=== PATIENT | female | born 2000 | race Caucasian/White ===

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

== ENCOUNTER 2020-06-21 02:17 | Emergency (ER) | payer BC ==
[~2020-06-21] VITALS: Ht 180.3 cm; Wt 140.0 kg
[~2020-06-21 02:17] MED LIST: NAPROSYN500 MG PO
[2020-06-21 02:20] VITALS: TEMP 98.4
[2020-06-21 02:41] LABS: BASO # 0.1 (0.0-0.2); BASO % 0.5 % (0.0-2.0); EOS # 0.1 (0.0-0.7); EOS % 0.5 % (0-4.0); GRAN # 6.8 (1.4-6.5); GRAN % 69.5 % (42.2-75.2); HEMATOCRIT 45.2 % (35.0-45.0); HEMOGLOBIN 14.6 g/dl (12.0-15.0); LYMPH # 2.2 (1.2-3.4); LYMPH % 22.7 % (20.0-51.0); MEAN CELL VOLUME 87 fl (80.0-95.0); MEAN CORPUSCULAR HEMOGLOBIN 28 pg (26.0-32.0); MEAN CORPUSCULAR HGB CONC 32 g/dl (33.0-37.0); MEAN PLATELET VOLUME 9.9 fl (7.4-10.4); MONO # 0.6 (0.1-0.6); MONO % 6.6 % (1.7-9.3); PLATELET COUNT 298 K/mm3 (130-400); RED BLOOD COUNT 5.19 M/mm3 (4.10-5.30); REDCELL DISTRIBUTION WIDTH-CV 12.5 % (11.5-14.5)
[2020-06-21 02:55] LABS: ALBUMIN 4.8 gm/dL (3.5-5.0); BILIRUBIN,TOTAL 0.6 mg/dL (0.0-1.0); CALCIUM 9.9 mg/dL (8.4-10.2); CREATININE, serum 1.05 (0.52-1.25); TOTAL PROTEIN 8.1 gm/dL (6.4-8.2)
[2020-06-21 04:19] LABS: COLLECTION METHOD CLEAN CATCH
[2020-06-21 04:37] VITALS: BP 128/71; PULSE 71
[2020-06-21 04:37] LABS: PH 6 (5-8); URINE APPEARANCE Clear; URINE COLOR Straw; URINE GLUCOSE Negative (NEGATIVE); URINE KETONE Negative (NEGATIVE); URINE PROTEIN(semi-quant) Negative (NEGATIVE)
[2020-06-21 04:38] LABS: URINE BILIRUBIN Negative (NEGATIVE); URINE NITRATE Negative (NEGATIVE); URINE UROBILINOGEN Negative (NEGATIVE)
[2020-06-21 04:39] LABS: URINE BLOOD Negative (NEGATIVE); URINE LEUKOCYTE ESTERASE Trace (NEGATIVE); URINE RBC 0-2 /hpf; URINE WBC 0-2 /hpf
[2020-06-21 04:40] LABS: SQUAMOUS EPITHELIAL 0-2 /hpf
== END 2020-06-21 04:37 | disposition home or self-care (01) ==
LOC: COL.ER 02:17
PROVIDERS: Emergency Medicine
DX: R10.10 Upper abdominal pain, unspecified (principal); R10.13 Epigastric pain
CPT/HCPCS: J2270; J2405; J7120

== ENCOUNTER → 2020-07-09 | Outpatient (CLI) | payer BC ==
[~2020-07-09] MED LIST changes: +LEVAQUIN 750MG750 M1 PO; +NORCO 325 MG-51 TAB PO; +ZOFRAN ODT4 MG PO
== END ==
LOC: COL.RAD
DX: K80.20 Calculus of gallbladder without cholecystitis without obstruction (principal)

== ENCOUNTER 2020-07-12 00:33 | Emergency (ER) | payer BC ==
[~2020-07-12] VITALS: Ht 175.3 cm; Wt 136.4 kg
[~2020-07-12 00:33] MED LIST changes: -LEVAQUIN 750MG750 M1 PO; -NORCO 325 MG-51 TAB PO; -ZOFRAN ODT4 MG PO
[2020-07-12 00:37] VITALS: TEMP 97.9
[2020-07-12 01:24] LABS: BASO % 0.3 % (0.0-2.0); EOS # 0.1 (0.0-0.7); EOS % 0.7 % (0-4.0); GRAN # 6.8 (1.4-6.5); GRAN % 59.8 % (42.2-75.2); HEMATOCRIT 42.7 % (35.0-45.0); LYMPH # 3.7 (1.2-3.4); LYMPH % 32.6 % (20.0-51.0); MEAN CELL VOLUME 88 fl (80.0-95.0); MEAN CORPUSCULAR HEMOGLOBIN 29 pg (26.0-32.0); MEAN CORPUSCULAR HGB CONC 33 g/dl (33.0-37.0); MONO # 0.7 (0.1-0.6); MONO % 6.2 % (1.7-9.3); PLATELET COUNT 340 K/mm3 (130-400); RED BLOOD COUNT 4.84 M/mm3 (4.10-5.30); REDCELL DISTRIBUTION WIDTH-CV 12.6 % (11.5-14.5)
[2020-07-12 01:36] LABS: ALANINE AMINOTRANSFERASE 14 U/L (4-34); ALBUMIN 4.4 gm/dL (3.5-5.0); ALKALINE PHOSPHATASE 68 U/L (50-136); ANION GAP 9 mmol/L (7-16); AST,SGOT 20 U/L (15-37); BILIRUBIN,TOTAL 0.2 mg/dL (0.0-1.0); BLOOD UREA NITROGEN 11 mg/dL (7-17); CALCIUM 9.4 mg/dL (8.4-10.2); CARBON DIOXIDE 29 mmol/L (22-30); CHLORIDE 103 mmol/L (98-107); CREATININE, serum 0.98 (0.52-1.25); GLUCOSE 95 mg/dL (74-106); LIPASE 78 U/L (23-300); POTASSIUM 3.6 mmol/L (3.4-5.0); SODIUM 140 mmol/L (137-145); TOTAL PROTEIN 7.3 gm/dL (6.4-8.2)
[2020-07-12 01:38] LABS: C-REACTIVE PROTEIN < 0.5 mg/dL (0.0-0.9)
[2020-07-12] MEDS ORDERED: ZOFRAN ODT4 MG PO (02:00)
[2020-07-12] MEDS ORDERED: NORCO 325 MG-51 TAB PO (02:00)
[2020-07-12 02:14] VITALS: BP 123/74; PULSE 78
== END 2020-07-12 02:14 | disposition home or self-care (01) ==
LOC: COL.ER 00:33
PROVIDERS: Emergency Medicine
DX: K80.50 Calculus of bile duct without cholangitis or cholecystitis without obstruction (principal)
CPT/HCPCS: J2270; J2405; J7030

== ENCOUNTER 2020-07-15 00:13 | Emergency (ER) | payer BC ==
[~2020-07-15] VITALS: Ht 175.3 cm; Wt 136.4 kg
[~2020-07-15 00:13] MED LIST changes: +NORCO 325 MG-51 TAB PO; +ZOFRAN ODT4 MG PO
[2020-07-15 00:31] VITALS: TEMP 98.1
[2020-07-15 00:55] LABS: COLLECTION METHOD CLEAN CATCH
[2020-07-15 00:57] LABS: BASO % 0.4 % (0.0-2.0); EOS # 0.1 (0.0-0.7); EOS % 1.3 % (0-4.0); GRAN # 3.6 (1.4-6.5); HEMATOCRIT 39.8 % (35.0-45.0); HEMOGLOBIN 12.9 g/dl (12.0-15.0); LYMPH # 4.1 (1.2-3.4); LYMPH % 48.7 % (20.0-51.0); MEAN CELL VOLUME 88 fl (80.0-95.0); MEAN CORPUSCULAR HEMOGLOBIN 29 pg (26.0-32.0); MEAN CORPUSCULAR HGB CONC 32 g/dl (33.0-37.0); MEAN PLATELET VOLUME 9.8 fl (7.4-10.4); MONO # 0.5 (0.1-0.6); MONO % 6.4 % (1.7-9.3); PLATELET COUNT 307 K/mm3 (130-400); RED BLOOD COUNT 4.52 M/mm3 (4.10-5.30); REDCELL DISTRIBUTION WIDTH-CV 12.9 % (11.5-14.5)
[2020-07-15 01:07] LABS: MUCOUS Present /lpf; PH 5 (5-8); URINE APPEARANCE Hazy; URINE BACTERIA None Seen /hpf; URINE BILIRUBIN Negative (NEGATIVE); URINE BLOOD Negative (NEGATIVE); URINE COLOR Yellow; URINE GLUCOSE Negative (NEGATIVE); URINE KETONE Negative (NEGATIVE); URINE LEUKOCYTE ESTERASE Trace (NEGATIVE); URINE NITRATE Negative (NEGATIVE); URINE PROTEIN(semi-quant) Negative (NEGATIVE); URINE UROBILINOGEN Negative (NEGATIVE)
[2020-07-15 01:09] LABS: ALANINE AMINOTRANSFERASE 16 U/L (4-34); ALBUMIN 4.1 gm/dL (3.5-5.0); ALKALINE PHOSPHATASE 59 U/L (50-136); ANION GAP 11 mmol/L (7-16); AST,SGOT 26 U/L (15-37); BILIRUBIN,TOTAL < 0.1 mg/dL (0.0-1.0); BLOOD UREA NITROGEN 16 mg/dL (7-17); CALCIUM 9.3 mg/dL (8.4-10.2); CARBON DIOXIDE 26 mmol/L (22-30); CHLORIDE 104 mmol/L (98-107); CREATININE, serum 0.87 (0.52-1.25); GLUCOSE 95 mg/dL (74-106); LIPASE 70 U/L (23-300); POTASSIUM 3.3 mmol/L (3.4-5.0); SODIUM 141 mmol/L (137-145)
[2020-07-15 02:49] VITALS: BP 139/86; PULSE 83
== END 2020-07-15 02:49 | disposition home or self-care (01) ==
LOC: COL.ER 00:13
PROVIDERS: Emergency Medicine
DX: K80.50 Calculus of bile duct without cholangitis or cholecystitis without obstruction (principal); Z32.02 Encounter for pregnancy test, result negative
CPT/HCPCS: J2270

== ENCOUNTER 2020-07-17 05:28 | Day surgery (SDC) | payer BC ==
[~2020-07-17] VITALS: Ht 175.3 cm; Wt 137.6 kg
[2020-07-17] VITALS (7 sets, daily range): BP systolic 118–133; BP diastolic 39–70; PULSE 62–85; TEMP 98.4–98.7
[2020-07-17] MEDS ORDERED: LEVAQUIN 750MG750 M1 PO (05:54)
[2020-07-17] MEDS ORDERED: NORCO 325 MG-51 TAB PO (08:46)
--- NOTE | 2020-07-17 09:24 | NUR ---
PT TO [facility] VIA CART ACCOMPANIED BY Tyron FLORIAN RN FROM PACU. PT ALERT AND ORIENTED. 5 BANDAIDS TO ABDOMEN C/D/I FROM SURGICAL INCISIONS. ABDOMEN SOFT, NON-TENDER, NON-DISTENDED. PT C/O FEELING COLD, BEAR HUGGER PLACED BY Tyron FLORIAN RN, WARM BLANKETS PROVIDED WELL. PT'S MOTHER TO BEDSIDE, CALL LIGHT IN REACH, IV LR INFUSING. VITALS WNL.
--- NOTE | 2020-07-17 09:24 | NUR ---
PT PRESENTS TO [facility] VIA CART ACCOMPANIED BY MARIAJOSE SHOTGUN SHELL ASSEMBLY MACHINE ADJUSTER. PT ALERT AND ORIENTED. VITALS WNL. DRESSINGS C/D/I. ABDOMEN SOFT AND NON-TENDER. REPORTS PAIN 2/10 IN RIGHT UPPER ABDOMEN. DENIES NEEDS AT THIS TIME, MOTHER TO BEDSIDE. BEAR HUGGER WARMER ON, CALL LIGHT IN REACH.
--- NOTE | 2020-07-17 09:55 | NUR ---
PT SAT UP IN BED, GLASS OF WATER PROVIDED. PT REPORTS PAIN 2-3/10 IN RIGHT UPPER ABDOMEN. REPORTS IT IS "TOLERABLE". VITALS WNL. PT DENIES FURTHER NEEDS OR COMPLAINTS. CALL LIGHT IN REACH, MOTHER AT BEDSIDE.
--- NOTE | 2020-07-17 10:25 | NUR ---
PT RESTING IN BED, TOLERATING PO FLUIDS. GLASS OF SPRITE AND SALTINE CRACKERS PROVIDED PER PT'S REQUEST. PT REPORTS PAIN IS IMPROVING WITH SITTING UP. DENIES FURTHER NEEDS AT THIS TIME. CALL LIGHT IN REACH, MOTHER AT BEDSIDE.
--- NOTE | 2020-07-17 10:54 | NUR ---
PT'S IV SALILNE LOCKED, TOLERATING FLUIDS WITHOUT NAUSEA/VOMITING. PT UP TO RESTROOM WITH STANDBY ASSIST. AMBULATES WITH STEADY GAIT. RETURNS TO BED, SMALL AMOUNT OF BLOOD NOTICED ON PT'S GOWN. RIGHT LOWER BANDAGE HAS NO APPARENT BLOOD ON OUTSIDE OF BANDAID, BLOOD PRESENT ON THE INNER ASPECT OF BANDAGE. BANDAGE REMOVED. DRIED BLOOD CLEANSED OFF OF PATIENT'S ABDOMEN. NO ACTIVE BLEEDING OBSERVED. NEW BANDAID APPLIED TO INCISION SITE. PT TOLERATES WELL.
--- NOTE | 2020-07-17 11:12 | NUR ---
PT C/O PAIN IN RIGHT SHOULDER. REPORTS PAIN STARTED AFTER GETTING UP AND AMBULATING TO RESTROOM. RATES PAIN 4-5/10. PROVIDED EDUCATION TO PATIENT REGARDING POST-OPERATIVE PAIN FROM THE GAS USED IN SURGERY. PT AND MOTHER VERBALIZE UNDERSTANDING. PT REQUESTS PAIN MEDICATION. NORCO 5MG/325MG ADMINISTERED PO PER ORDER. PT'S IV DISCONTINUED. PT CHANGED INTO PERSONAL CLOTHES. DISCHARGE INSTRUCTIONS PROVIDED. PT AND MOTHER VERBALIZE UNDERSTANDING, DENIES FURTHER QUESTIONS AT THIS TIME.
--- NOTE | 2020-07-17 11:45 | NUR ---
PT DISCHARGED VIA WHEEL CHAIR TO PRIVATE VEHICLE, MOTHER DRIVING. PT REPORTS PAIN IN RIGHT SHOULDER IMPROVING. PT BELONGINGS AND DISCHARGE INSTRUCTIONS SENT HOME WITH PT.
== END 2020-07-17 11:45 | disposition home or self-care (01) ==
LOC: SDCO 05:28
DX: K80.10 Calculus of gallbladder with chronic cholecystitis without obstruction (principal); Z20.822 Contact with and (suspected) exposure to COVID-19; Z80.3 Family history of malignant neoplasm of breast; Z83.3 Family history of diabetes mellitus
CPT/HCPCS: J0690; J1100; J1885; J2405; J2704; J3010; J7120

== ENCOUNTER → 2021-02-25 | Outpatient (CLI) | payer BC ==
[~2021-02-25] MED LIST changes: +LEVAQUIN 750MG750 M1 PO
== END ==
LOC: COL.RAD 07:59
DX: R10.13 Epigastric pain (principal); R10.11 Right upper quadrant pain; R11.0 Nausea; Z90.49 Acquired absence of other specified parts of digestive tract